=== PATIENT | male | born 1990 | race Caucasian/White ===

== ENCOUNTER 2020-12-05 07:29 | Outpatient (CLI) | payer OTHER, SELFPAY ==
--- NOTE | ~2020-12-05 | XR_ITS ---
EXAMINATION: XR chest 2V DATE: 12/05/2020 07:46 INDICATION: Hemoptysis TECHNIQUE: PA and lateral views of the chest were obtained. COMPARISON: None FINDINGS: Bilateral small calcified pulmonary nodules in the left midlung zone and at the lateral right lung ba se consistent with old granulomatous disease no other airspace opacities, pulmonary edema, pleural ef fusion or pneumothorax. The cardiomediastinal silhouette is normal. Visualized bones and soft tissues are unremarkable. IMPRESSION: 1. No acute cardiopulmonary disease. Reviewed, dictated and finalized at location A.
== END 2020-12-05 07:30 | disposition home or self-care (01) ==
LOC: ANHIMG 07:33
PROVIDERS: PCP Internal Medicine; Visit Provider Internal Medicine
DX: R05 Cough (principal)
CPT/HCPCS: 71046

== ENCOUNTER 2025-01-07 15:03 | Emergency (ER) | payer SELFPAY ==
[2025-01-07 15:14] VITALS: BP 183/109; PULSE 74; RESP 18; TEMP 36.3; O2SAT 100
--- NOTE | 2025-01-07 15:17 | ED.GENADULT ---
HPI - General Adult General Chief complaint: Neuro Symptoms/Deficit Stated complaint: Numbness/Tingling In Feet Source: patient Mode of arrival: ambulatory Limitations: no limitations History of Present Illness HPI narrative: Patient is a 32-year-old presents clinic with tingling to both feet. He has had history of hypertension in the past and has not had medications refilled the last couple years due to not having a PCP. Denies any decreased strength in both feet, history of diabetes, fever, chills, nausea, vomiting. Related Data Allergies Allergy/AdvReac Type Severity Reaction Status Date / Time No Known Allergies Allergy Mild Verified 01/07/25 15:05 Review of Systems Review of Systems: CONSTITUTIONAL: Denies body aches, fever, chills, or sweats. EYES: Denies visual changes, redness, or discharge. ENT: Denies rhinorrhea, congestion, sore throat, or otalgia. CARDIOVASCULAR: Denies ? chest pain, palpitations, or edema. RESPIRATORY: Denies cough or dyspnea. GASTROINTESTINAL: Denies abdominal pain, nausea, vomiting, or diarrhea. GENITOURINARY: Denies dysuria or hematuria. SKIN: Denies rash, itching, or wounds. MUSCULOSKELETAL: Denies back pain, joint pain, or myalgia. NEUROLOGIC: Denies headache, numbness or weakness, ?dizziness. Reports tingling to both feet. PSYCH: ?Denies depression or anxiety. All systems reviewed & are unremarkable except as noted in HPI and below PMFSH Past Medical History Medical History (Updated 01/07/25 @ 15:31 by Geni Randolph APRN) COVID-19 Essential (primary) hypertension CARLOS (obstructive sleep apnea) Family History Family History (Updated 11/21/20 @ 12:52 by Bj Dos Santos APRN) Grandparent Diabetes mellitus Father Hypertension Social History Social History (Updated 06/05/21 @ 09:36 by Briseida Lara MA) Smoking status: Current some day smoker (Smokes 1-2 joints daily) Alcohol intake: current Drinks per week: 10 Substance use: current Substance use type: marijuana Living arrangements: with roommate(s) Occupation/Education: occupation Additional occupation/education comments: sells marijuana Comments At time of signature, I have reviewed and agree with nursing past medical, surgical, social and family history unless otherwise noted. Please see nursing chart for further information. There is no relevant family history pertinent to the presenting complaint. Exam Narrative: GENERAL: Well-appearing, well-nourished HEAD: Normocephalic, atraumatic. EYES: PERRLA, EOMI. ? ENT: Mucous membranes pink and moist. ?No rhinorrhea. ?TMs normal bilaterally. ? NECK: Normal AROM. ?Supple. ?No lymphadenopathy. CHEST: ?No respiratory distress. Clear to auscultation. HEART: Regular rate and rhythm. No murmur appreciated. Normal peripheral pulses. ABDOMEN: Soft, nontender, nondistended, normal active bowel sounds. MUSCULOSKELETAL: ?No bony tenderness. EXTREMITIES: Normal range of motion. No edema. SKIN: Warm, dry, no rash. Capillary refill normal. ?Normal skin turgor. NEURO:No focal deficits. Alert and oriented x3. ?Finger to nose intact bilaterally. EOMs intact without nystagmus. No facial droop/asymmetry noted bilaterally. Grimace intact. Intact sensation in face. Hearing intact bilaterally. Shoulder shrug intact. Strength 5/5 bilateral upper extremities. Strength 5/5 bilateral lower extremities. Reflexes 2+ patellar. Heel to cameron intact bilaterally. Ambulatory exam with a normal based, steady gait. PSYCH: ?Normal affect. ?No signs of depression or anxiety. Course Course Level of Care: Express Care Visit Vital Signs Vital signs: Vital Signs Temperature 97.3 F L 01/07/25 15:14 Pulse Rate 74 01/07/25 15:14 Respiratory Rate 18 01/07/25 15:14 Blood Pressure 183/109 H 01/07/25 15:14 Pulse Oximetry 100 01/07/25 15:14 Oxygen Delivery Room Air 01/07/25 15:14 Temperature 97.3 F L 01/07/25 15:14 Pulse Rate 74 01/07/25 15:14 Respiratory Rate 18 01/07/25 15:14 Blood Pressure 183/109 H 01/07/25 15:14 Pulse Oximetry 100 01/07/25 15:14 Oxygen Delivery Room Air 01/07/25 15:14 Reviewed. Medical Decision Making MDM Narrative Medical decision making narrative: Discussed physical exam findings. Amlodipine refilled for hypertension. Advised supportive measures and signs/symptoms to go to the ER. Pt is appropriate for outpatient treatment and follow up. Differential Diagnosis Differential Diagnosis: Hypertension, Diabetes, Neuropathy Vital Signs Vital Signs: Vital Signs Temperature 97.3 F L 01/07/25 15:14 Pulse Rate 74 01/07/25 15:14 Respiratory Rate 18 01/07/25 15:14 Blood Pressure 183/109 H 01/07/25 15:14 Pulse Oximetry 100 01/07/25 15:14 Oxygen Delivery Room Air 01/07/25 15:14 Temperature 97.3 F L 01/07/25 15:14 Pulse Rate 74 01/07/25 15:14 Respiratory Rate 18 01/07/25 15:14 Blood Pressure 183/109 H 01/07/25 15:14 Pulse Oximetry 100 01/07/25 15:14 Oxygen Delivery Room Air 01/07/25 15:14 Critical Care Time Critical Care Time Critical Care Time: No Discharge Plan Discharge Clinical Impression: Tingling of both feet Patient Disposition: Home Condition: Stable Instructions: Hypertension (ED) Additional Instructions: Take amlodipine as prescribed. Please schedule an appointment with a primary care physician. Your blood pressure was elevated today at Urgent Care. Your blood sugar was within normal range today. If you have any worsening symptoms, please go to the ER immediately. Patient Language: Afghan Prescriptions: New amlodipine 10 mg tablet 10 mg PO DAILY 30 Days Qty: 30 0RF No Action amlodipine 10 mg tablet 10 mg PO DAILY Qty: 90 2RF valsartan [Diovan] 160 mg tablet 160 mg PO DAILY Qty: 90 2RF fenofibrate 160 mg tablet 160 mg PO DAILY Qty: 30 5RF Follow-up/Referrals: Balaji Barroso DO [Primary Care Provider] - Stand Alone Forms: Work/School Release IP Time of Disposition: 15:33
[2025-01-07 15:20] VITALS: BP 160/110
[2025-01-07 15:32] LABS: Glucose Point of Care 97 mg/dl (65-105)
== END 2025-01-07 15:45 | disposition home or self-care (01) ==
PROVIDERS: PCP Internal Medicine
DX: R20.2 Paresthesia of skin (principal); I10 Essential (primary) hypertension; F17.210 Nicotine dependence, cigarettes, uncomplicated
CPT/HCPCS: 82948; 99213; G0463

== ENCOUNTER 2025-06-28 08:02 | Outpatient (CLI) | payer OTHER, SELFPAY ==
--- NOTE | ~2025-06-28 | XR_ITS ---
XR lumbar spine 2-3V Indication: Neuralgia and neuritis, pain/ numbness down to toes, Comparison: None Findings: The vertebral heights are intact. No fracture or subluxation. The disc heights are intact. Soft tissues unremarkable Impression: No acute abnormality. Reviewed, dictated and finalized at location P. Impression: No acute abnormality.
== END 2025-06-28 08:03 | disposition home or self-care (01) ==
PROVIDERS: PCP Internal Medicine; Visit Provider Internal Medicine
DX: M79.2 Neuralgia and neuritis, unspecified (principal)
CPT/HCPCS: 72100